=== PATIENT | female | born 1940 | race Caucasian/White ===

== ENCOUNTER → 2020-08-16 | Outpatient (CLI) | payer OTHER, BC | LOC: HYPER 08:59 | PROVIDERS: ATTEND Emergency Medicine Emergency Medical Services | DX: T24.322A Burn of third degree of left knee, initial encounter (principal); T31.0 Burns involving less than 10% of body surface; L03.116 Cellulitis of left lower limb; M81.0 Age-related osteoporosis without current pathological fracture; I10 Essential (primary) hypertension; M85.80 Other specified disorders of bone density and structure, unspecified site; R42 Dizziness and giddiness; M15.0 Primary generalized (osteo)arthritis; H40.9 Unspecified glaucoma; Z79.82 Long term (current) use of aspirin; W93.2XXA Prolonged exposure in deep freeze unit or refrigerator, initial encounter; Y93.89 Activity, other specified; Y92.89 Other specified places as the place of occurrence of the external cause; Y99.8 Other external cause status ==

== ENCOUNTER → 2020-08-23 | Outpatient (CLI) | payer OTHER, BC | LOC: HYPER 08:51 | PROVIDERS: ATTEND Emergency Medicine Emergency Medical Services | DX: T24.322D Burn of third degree of left knee, subsequent encounter (principal); T31.0 Burns involving less than 10% of body surface; L03.116 Cellulitis of left lower limb; M81.0 Age-related osteoporosis without current pathological fracture; I10 Essential (primary) hypertension; M85.80 Other specified disorders of bone density and structure, unspecified site; R42 Dizziness and giddiness; M15.0 Primary generalized (osteo)arthritis; H40.9 Unspecified glaucoma; Z79.82 Long term (current) use of aspirin; W93 Exposure to excessive cold of man-made origin ==

== ENCOUNTER → 2020-09-30 | Outpatient (CLI) | payer OTHER, BC | LOC: HYPER 08:44 | PROVIDERS: ATTEND Emergency Medicine Emergency Medical Services | DX: T24.322D Burn of third degree of left knee, subsequent encounter (principal); T31.0 Burns involving less than 10% of body surface; L97.822 Non-pressure chronic ulcer of other part of left lower leg with fat layer exposed; L03.116 Cellulitis of left lower limb; I10 Essential (primary) hypertension; R42 Dizziness and giddiness; H40.9 Unspecified glaucoma; M81.0 Age-related osteoporosis without current pathological fracture; M15.0 Primary generalized (osteo)arthritis; M85.80 Other specified disorders of bone density and structure, unspecified site; Z79.82 Long term (current) use of aspirin; W93 Exposure to excessive cold of man-made origin ==

== ENCOUNTER → 2020-11-04 | Outpatient (CLI) | payer OTHER, BC | LOC: HYPER 07:57 | PROVIDERS: ATTEND Emergency Medicine Emergency Medical Services | DX: T24.322D Burn of third degree of left knee, subsequent encounter (principal); T24.032D Burn of unspecified degree of left lower leg, subsequent encounter; T31.0 Burns involving less than 10% of body surface; L97.822 Non-pressure chronic ulcer of other part of left lower leg with fat layer exposed; M81.0 Age-related osteoporosis without current pathological fracture; M85.80 Other specified disorders of bone density and structure, unspecified site; I10 Essential (primary) hypertension; R42 Dizziness and giddiness; M15.0 Primary generalized (osteo)arthritis; H40.9 Unspecified glaucoma; Z79.82 Long term (current) use of aspirin; W93 Exposure to excessive cold of man-made origin ==